=== PATIENT | male | born 1975 | race Caucasian/White ===

== ENCOUNTER → 2025-05-03 12:18 | Outpatient (CLI) | payer OTHER, SELFPAY ==
--- NOTE | 2025-05-03 12:20 | DI.MRI.S_ITS ---
PROCEDURE: MR LUMBAR SPINE WO CON INDICATIONS: h/o of lumbar fusion TECHNIQUE: Noncontrast sagittal T1 spin echo and T2 fast echo, sagittal STIR, and T2 fast spin echo through the lumbar spine. In cases with scoliosis, additional coronal T2 fast spin echo may be performed. COMPARISON: [facility] [place], [place], SPINE LUMB 2 OR 3VW, 03/28/2015, 9:41. FINDINGS: Image quality: Excellent. Alignment and Curvature: There is normal bony alignment. Transitional vertebral body anatomy with sacralization of L5. Bone Marrow: Posterior spinal fusion spanning from the thoracic spine through L3. Multilevel decompression. Marrow is of normal overall signal. No acute vertebral body compression fractures. Spinal Cord: Conus medullaris terminates at the T12-L1 level. Visualized cord demonstrates normal signal and size. Paraspinous Soft Tissues: No paravertebral masses. T12-L1: No central canal stenosis. No significant neural foraminal stenosis, however evaluation is limited. L1-L2: Disc desiccation and facet hypertrophy. Mild central canal stenosis. Mild bilateral neural foraminal stenosis. L2-L3: Disc desiccation. Facet hypertrophy. Mild central canal stenosis. Mild bilateral neural foraminal stenosis. L3-L4: Disc desiccation diffuse disc bulge. Facet hypertrophy. Severe central canal stenosis. Moderate bilateral neural foraminal stenosis. L4-L5: Severe facet hypertrophy. Moderate to severe central canal stenosis. Mild bilateral neural foraminal stenosis. L5-S1: No significant central canal stenosis. Mild bilateral neural foraminal stenosis. IMPRESSION: 1. Degenerative changes status post thoracolumbar spinal fusion extending through the L3 vertebral body. There is transitional vertebral body anatomy with sacralization of the L5 vertebral body. Recommend correlation with plain films prior to any intervention. 2. Severe central canal stenosis at L3-L4. Moderate to severe central canal stenosis at L4-5. 3. Moderate bilateral neural foraminal stenosis at L3-L4. Dictated by: Christopher Mantilla M.D. on 05/03/2025 at 14:14 Approved by: Christopher Mantilla M.D. on 05/03/2025 at 14:20
== END ==
LOC: MRI 12:19
PROVIDERS: PCP Family Medicine; Referring Provider Family Medicine; Visit Provider Family Medicine
DX: M48.07 Spinal stenosis, lumbosacral region (principal); M48.061 Spinal stenosis, lumbar region without neurogenic claudication; M51.369 Other intervertebral disc degeneration, lumbar region without mention of lumbar back pain or lower extremity pain; M47.816 Spondylosis without myelopathy or radiculopathy, lumbar region; Q77.4 Achondroplasia; Z98.1 Arthrodesis status
CPT/HCPCS: 72148